=== PATIENT | female | born 1985 | race Caucasian/White ===

== ENCOUNTER → 2020-01-01 15:46 | Outpatient (CLI) | payer OTHER, SELFPAY ==
--- NOTE | ~2020-01-01 | US_ITS ---
US thyroid INDICATION: Follow-up thyroid nodules TECHNIQUE: Real-time sonographic images of the thyroid gland were obtained. COMPARISON: Ultrasound dated 09/23/2018 FINDINGS: The right thyroid lobe measures 4.2 x 1.6 x 1.4 cm. The left thyroid lobe measures 3.6 x 1 .2 x 1.3 cm. Thyroid echotexture is heterogeneous with multiple small nodules which are either stable or decreased in size compared with prior examination, largest in the right lobe measuring 4 mm great est dimension compared with 8 mm on prior examination. Largest in the left lobe measures 4 mm compare d with 8 mm on prior examination. IMPRESSION: 1. Stable or decreased size of small bilateral thyroid nodules measuring 4 mm or less, likely benign . Reviewed, dictated and finalized at location A. IMPRESSION: 1. Stable or decreased size of small bilateral thyroid nodules measuring 4 mm or less, likely benign.
== END ==
PROVIDERS: PCP Emergency Medicine; Visit Provider Emergency Medicine
DX: E04.1 Nontoxic single thyroid nodule (principal)
CPT/HCPCS: 76536

== ENCOUNTER 2020-03-01 09:22 | Outpatient (CLI) | payer OTHER, SELFPAY ==
--- NOTE | 2020-03-01 11:00 | NEURO_ITS ---
Patient Number: [id number] Impression: # Complains of numbness of left hand in the middle. # No Carpal Tunnel Syndrome. # Left ulnar neuropathy across the elbow. # Normal needle/EMG exam. # Clinical correlation recommended. Nerve Conduction Studies Anti Sensory Summary Table Stim Site NR Peak (ms) P-T Amp (?V) Site1 Site2 Delta-P (ms) Dist (cm) José (m/s) Left Median Anti Sensory (2-3nd Digit) Wrist 3.5 65.5 Wrist 2-3nd Digit 3.5 14.0 40 Wrist 3.5 22.5 Wrist 2-3nd Digit 3.5 14.0 40 Left Radial Anti Sensory (Base 1st Digit) Wrist 1.6 34.1 Wrist Base 1st Digit 1.6 0.0 Left Ulnar Anti Sensory (5th Digit) Wrist 2.4 64.7 Wrist 5th Digit 2.4 14.0 58 Motor Summary Table Stim Site NR Onset (ms) O-P Amp (mV) Site1 Site2 Delta-0 (ms) Dist (cm) José (m/s) Left Median Motor (Abd Poll Brev) Wrist 3.1 2.5 Elbow Wrist 4.8 30.0 62 Elbow 7.9 2.9 Left Ulnar Motor (Abd Dig Minimi) Wrist 2.2 6.8 A Elbow Wrist 5.3 29.0 55 A Elbow 7.5 6.2 B Elbow Wrist 3.7 26.0 70 B Elbow 5.9 5.1 F Wave Studies NR F-Lat (ms) L-R F-Lat (ms) Left Median (Mrkrs) (Abd Poll Brev) 27.27 Left Ulnar (Mrkrs) (Abd Dig Min) 27.40 EMG Side Muscle Nerve Root Ins Act Fibs Amp Dur Recrt Comment Left 1stDorInt Ulnar C8-T1 Nml Nml Nml Nml Nml Left Ext Indicis Radial (Post Int) C7-8 Nml Nml Nml Nml Nml Left Ext Digitorum Radial (Post Int) C7-8 Nml Nml Nml Nml Nml Left BrachioRad Radial C5-6 Nml Nml Nml Nml Nml Left PronatorTeres Median C6-7 Nml Nml Nml Nml Nml Left Abd Poll Brev Median C8-T1 Nml Nml Nml Nml Nml Left ABD Dig Min Ulnar C8-T1 Nml Nml Nml Nml Nml MTDD
== END 2020-03-01 09:23 | disposition home or self-care (01) ==
LOC: ANHNEURO 09:25
PROVIDERS: PCP Emergency Medicine; Visit Provider Emergency Medicine
DX: R20.2 Paresthesia of skin (principal); G56.22 Lesion of ulnar nerve, left upper limb
CPT/HCPCS: 95886; 95909

== ENCOUNTER → 2022-01-24 07:59 | Outpatient (CLI) | payer OTHER, SELFPAY ==
--- NOTE | ~2022-01-24 | US_ITS ---
EXAMINATION: US thyroid DATE: 01/24/2022 08:20 INDICATION: Nontoxic single thyroid nodule TECHNIQUE: Multiple ultrasound images of the thyroid were obtained. COMPARISON: None. FINDINGS: The right thyroid lobe measures 4.5 x 1.6 x 1.5 cm. The left thyroid lobe measures 4.0 x 1.4 x 1.4 c m. There are couple small wider than tall solid isoechoic nodules with smooth and ill-defined margin s and without echogenic foci measuring 5 mm at the inferior left thyroid lobe and 4 mm in the inferio r right thyroid lobe (TI-RADS 3, mildly suspicious , FNA if >=2.5 cm, annual followup is >=1.5 cm) . There is normal echotexture, echogenicity and vascular flow throughout the remainder of the thyroid gland. IMPRESSION: 1. A couple bilateral TI-RADS 3 thyroid nodules, the largest measuring 5 mm which remains well below size criteria for either biopsy or follow-up. Recommend clinical followup with repeat imaging if ther e are changes on physical exam. Reviewed, dictated and finalized at location A. IMPRESSION: 1. A couple bilateral TI-RADS 3 thyroid nodules, the largest measuring 5 mm whi ch remains well below size criteria for either biopsy or follow-up. Recommend c linical followup with repeat imaging if there are changes on physical exam.
== END ==
PROVIDERS: PCP Family Medicine; Visit Provider Physician Assistant
DX: E04.1 Nontoxic single thyroid nodule (principal)
CPT/HCPCS: 76536

== ENCOUNTER 2025-06-09 08:42 | Emergency (ER) | payer OTHER, SELFPAY ==
--- NOTE | 2025-06-09 08:48 | ED.GENADULT ---
HPI - General Adult General Chief complaint: Upper Respiratory Infection Stated complaint: Cough/Congestion Time Seen by Provider: 06/09/25 08:44 Source: patient Mode of arrival: ambulatory Limitations: no limitations History of Present Illness HPI narrative: Pt is a 40 y/o female presenting with c/o cold sx. Reports initial sx of sore throat 5 days ago and now reports cough, congestion. No known exposure to COVID, FLU, STREP, PNA. 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 NO additional complaints. Related Data Allergies Allergy/AdvReac Type Severity Reaction Status Date / Time No Known Allergies Allergy Verified 06/09/25 08:57 Review of Systems Review of Systems: CONSTITUTIONAL: Denies body aches, fever, chills, or sweats. EYES: Denies visual changes, redness, or discharge. ENT: reports congestion, sore throat, Denies rhinorrhea or otalgia. CARDIOVASCULAR: Denies chest pain, palpitations, or edema. RESPIRATORY: reports cough denies dyspnea. GASTROINTESTINAL: Denies abdominal pain, nausea, vomiting, or diarrhea. GENITOURINARY: Denies dysuria or hematuria. SKIN: Denies rash, itching, or wounds. MUSCULOSKELETAL: Denies back pain, joint pain, or myalgia. NEUROLOGIC: Denies headache, numbness, tingling, or weakness. PSYCH: Denies depression or anxiety. All systems reviewed & are unremarkable except as noted in HPI and below PMFSH Surgical History Surgical History History of carpal tunnel surgery H/O breast augmentation Family History Family History (Updated 07/16/24 @ 16:35 by Marilee Salazar MA) Mother Family history of mental disorder Hypertension Breast cancer Other Family history of cardiovascular disease Family history of hypercholesterolemia No family history of allergies Social History Social History Smoking status: Never smoker Alcohol intake: current Exam Narrative: GENERAL: Well-appearing, well-nourished, and in no acute distress. HEAD: Normocephalic, atraumatic. EYES: EOMI. No redness or drainage. Conjunctivae normal. ENT: Mucous membranes pink and moist. Nares clear. No rhinorrhea. TMs normal bilaterally. Throat normal. Uvula midline. voice is normal NECK: Normal AROM. Supple. No lymphadenopathy. CHEST: No respiratory distress. Clear to auscultation. HEART: Regular rate and rhythm. No murmur appreciated. Normal peripheral pulses. ABDOMEN: Soft, nontender, nondistended, normal active bowel sounds. MUSCULOSKELETAL: No bony tenderness. EXTREMITIES: Normal range of motion. No edema. SKIN: Warm, dry, no rash. Capillary refill normal. Normal skin turgor. NEURO: No focal deficits. Alert and oriented x3. Gait steady. PSYCH: Normal affect. No signs of depression or anxiety. Course Course Level of Care: Express Care Visit Vital Signs Vital signs: Vital Signs Temperature 97.7 F 06/09/25 08:57 Pulse Rate 83 06/09/25 08:57 Respiratory Rate 16 06/09/25 08:57 Blood Pressure 133/88 06/09/25 08:57 Pulse Oximetry 100 06/09/25 08:57 Temperature 97.7 F 06/09/25 08:57 Pulse Rate 83 06/09/25 08:57 Respiratory Rate 16 06/09/25 08:57 Blood Pressure 133/88 06/09/25 08:57 Pulse Oximetry 100 06/09/25 08:57 MDM MDM Narrative Medical decision making narrative: 40 y/o female without significant comorbidities presenting with 5 days of cold sx. Exam is unremarkable. No indication for POC testing. Educated on viral illness, strict return/go to ER precautions. Discussed elevated blood pressure readings with patient and advised daily BP monitoring and f/u with PCP if persisting. Differential Diagnosis Differential Diagnosis: COVID, flu, strep, pneumonia, bronchitis, other URI Discharge Plan Discharge Clinical Impression: Upper respiratory infection, viral, Elevated blood pressure reading in office without diagnosis of hypertension Patient Disposition: Home Condition: Stable Instructions: Antibiotic Form, Viral Syndrome (ED), Cold Symptoms (ED) Additional Instructions: Go straight to ER should your symptoms become worse or should any new symptoms develop Patient Language: Nigerian Prescriptions: No Action sertraline 100 mg tablet 100 mg PO DAILY Qty: 30 0RF Follow-up/Referrals: Rosalinda Lozada MD [Primary Care Provider, [facility]] - 06/10/25 Time of Disposition: 08:58
[2025-06-09 08:57] VITALS: BP 133/88; PULSE 83; RESP 16; TEMP 36.5; O2SAT 100
== END 2025-06-09 09:02 | disposition home or self-care (01) ==
PROVIDERS: Emergency Provider Registered Nurse; PCP Family Medicine
DX: J06.9 Acute upper respiratory infection, unspecified (principal); R03.0 Elevated blood-pressure reading, without diagnosis of hypertension
CPT/HCPCS: 99211; G0463